=== PATIENT | female | born 1995 ===

== ENCOUNTER 2018-06-26 10:22 | Outpatient (CLI) | payer OTHER | END 2018-06-26 10:23 | disposition home or self-care (01) | LOC: SONOGRAMA 10:22 | DX: K81.9 Cholecystitis, unspecified (principal) ==

== ENCOUNTER 2019-01-14 11:15 | Outpatient (CLI) | payer OTHER | END 2019-01-14 11:22 | disposition home or self-care (01) | LOC: RAD 11:15 | DX: M25.552 Pain in left hip (principal) ==